=== PATIENT | female | born 1995 | race Hispanic/Latino ===

== ENCOUNTER 2023-05-15 19:35 | Emergency (ER) | payer OTHER ==
[~2023-05-15] VITALS: Ht 152.4 cm; Wt 46.3 kg
[2023-05-15] MEDS ORDERED: FLUORESCEIN SODIUM 1 STRIP STRIP OP SCH (21:30)
[2023-05-15] MEDS ORDERED: TETRACAINE HCL 0.5% 4 ML OPHTH SOLN OP SCH (21:30)
[2023-05-15] MEDS ORDERED: MOXIOS OD (22:32)
[2023-05-15 22:46] VITALS: BP 108/58; PULSE 81; RESP 17; O2SAT 99
== END 2023-05-15 22:51 | disposition home or self-care (01) ==
LOC: EDH 19:35
DX: H10.89 Other conjunctivitis (principal)